=== PATIENT | female | born 1995 | race Caucasian/White ===

== ENCOUNTER → 2019-09-16 14:10 | Outpatient (CLI) | payer BC, SELFPAY ==
--- NOTE | 2019-09-16 | DI.US.S_ITS ---
PROCEDURE: US ABDOMEN COMPLETE INDICATIONS: RUQ PAIN TECHNIQUE: Real-time scanning was performed of the abdominal and retroperitoneal organs, with image documentation. COMPARISON: [facility], [place], ABDOMEN COMPLETE, 11/04/2012, 8:34. FINDINGS: Liver: Liver is normal in size and homogeneous in echotexture. Gallbladder: The gallbladder appears normal Biliary ducts: Intrahepatic bile ducts are non-dilated. Extrahepatic bile duct caliber measures 4.7 mm. Normal is 6-7 mm or less in diameter, or 10 mm or less post-cholecystectomy. Pancreas: Visualized portions of the pancreas are sonographically normal. Spleen: Spleen is normal in size and homogeneous in echotexture. Kidneys: Kidneys are normal in size and echotexture. Right kidney measures 11.8 cm long; left kidney measures 11.7 cm long. No hydronephrosis or nephrolithiasis. No solid masses. Aorta: Visualized aorta is normal in caliber at less than 3 cm. Iliacs: Not seen due to bowel gas IVC: Intrahepatic inferior vena cava is patent. Miscellaneous: No free abdominal fluid. IMPRESSION: Source of right upper quadrant pain and weight gain is not identified. No ascites is found. No gallstones or biliary distention is identified. Dictated by: Fortino Colbert M.D. on 09/16/2019 at 15:54 Approved by: Fortino Colbert M.D. on 09/16/2019 at 15:55
== END ==
DX: R10.11 Right upper quadrant pain (principal)
CPT/HCPCS: 76700